=== PATIENT | female | born 2000 | race African-American/Black ===

== ENCOUNTER 2021-01-10 12:32 | Emergency (ER) | payer OTHER ==
[~2021-01-10] VITALS: Ht 149.9 cm; Wt 68.2 kg
[2021-01-10 13:23] LABS: BASO % 0.8 % (0.0-1.0); EOS # 0.1 10^3/uL (0.0-0.5); HEMATOCRIT 40.3 % (36.0-47.0); HEMOGLOBIN 13.3 g/dl (12.0-15.5); LYMPH # 2.1 10^3/uL (1.5-5.0); LYMPH % 41.8 % (24.0-44.0); MEAN CORPUSCULAR HEMOGLOBIN 29.8 pg (27.0-33.0); MEAN CORPUSCULAR VOLUME 90.2 fl (80.0-96.0); MONO # 0.5 10^3/uL (0.0-0.8); MONO % 9.6 % (2.0-8.0); NEUTROPHILS # 2.3 10^3/uL (1.5-8.5); NEUTROPHILS % 45.6 % (36.0-66.0); PLATELET COUNT, AUTOMATED 334 10^3/uL (150-450); RED BLOOD COUNT 4.47 10^6/uL (4.00-5.40)
[2021-01-10 14:04] LABS: HCG, SERUM QUALITATIVE NEGATIVE (NEGATIVE)
[2021-01-10 15:22] LABS: CHLAMYDIA DNA AMPLIFICATION NEGATIVE (NEGATIVE); GC DNA AMPLIFICATION NEGATIVE (NEGATIVE)
--- NOTE | 2021-01-10 15:39 | REP ---
INDICATION: left lower quadrant abdominal pain. COMPARISON: None. TECHNIQUE: Transabdominal and transvaginal scanning were performed. FINDINGS: Uterine dimensions are normal at 8.1 x 3.4 x 4.9 cm. Endometrial echo is 1.4 cm thick and centrally placed. No free fluid is seen in the cul-de-sac. Visualized bladder everett are smooth. Mobile endometrial echoes are seen in this patient with active bleeding. No focal uterine mass is seen. The right ovary has dimensions of 3.6 x 1.9 x 2.1 cm. It's Doppler flow is normal with a resistive index of 0.68. The left ovary dimensions are normal as well at 4.1 x 2.1 x 3.5 cm. It's Doppler flow was normal with resistive index of 0.64. There is a 2.6 x 2.6 x 1.7 cm follicle cyst visible in the left ovary. IMPRESSION: No significant morphologic abnormality. 2.6 cm follicle cyst left ovary.. <Electronically signed by Demetrio Byers > 01/10/21 [id number]
[2021-01-10 15:58] VITALS: BP 116/68
== END 2021-01-10 15:59 | disposition home or self-care (01) ==
LOC: M ED 12:32
DX: N93.8 Other specified abnormal uterine and vaginal bleeding (principal); N89.8 Other specified noninflammatory disorders of vagina; N83.02 Follicular cyst of left ovary

== ENCOUNTER 2021-04-20 09:42 | Emergency (ER) | payer OTHER ==
[~2021-04-20] VITALS: Ht 149.9 cm; Wt 66.4 kg
[2021-04-20 10:32] LABS: BASO % 0.4 % (0.0-1.0); EOS # 0.1 10^3/uL (0.0-0.5); EOS % 1.4 % (0.0-3.0); HEMATOCRIT 37.1 % (36.0-47.0); HEMOGLOBIN 12.5 g/dl (12.0-15.5); LYMPH % 39.3 % (24.0-44.0); MEAN CORPUSCULAR HEMOGLOBIN 30.8 pg (27.0-33.0); MEAN CORPUSCULAR HGB CONC 33.7 g/dl (32.0-36.5); MEAN CORPUSCULAR VOLUME 91.4 fl (80.0-96.0); MONO # 0.4 10^3/uL (0.0-0.8); MONO % 7.8 % (2.0-8.0); NEUTROPHILS # 2.5 10^3/uL (1.5-8.5); NEUTROPHILS % 50.7 % (36.0-66.0); PLATELET COUNT, AUTOMATED 317 10^3/uL (150-450); RED BLOOD COUNT 4.06 10^6/uL (4.00-5.40)
[2021-04-20 10:52] LABS: ALBUMIN 3.9 GM/DL (3.2-5.2); BILIRUBIN,DIRECT 0.2 MG/DL (0.0-0.2); BILIRUBIN,TOTAL 0.6 MG/DL (0.2-1.0); TOTAL PROTEIN 7.4 GM/DL (6.4-8.2)
--- NOTE | 2021-04-20 12:09 | REP ---
INDICATION: cramping COMPARISON: None. TECHNIQUE: Transabdominal and transvaginal 1st trimester obstetrical ultrasound with color Doppler evaluation. FINDINGS: Anteverted uterus measures 7.9 x 4.1 x 5.7 cm. A small cystic structure measuring 2.7 cm mean diameter may represent small empty gestational sac measuring at 4 weeks 5 days gestational age. No pole or yolk sac identified. Maternal ovaries are normal in appearance and vascularity. Right ovary measures 4.2 x 2.6 x 3.3 cm (RI 0.49) and includes 2.5 x 1.9 x 1.3 cm complex cystic lesion possible corpus luteum. Left ovary measures 3.1 x 1.4 x 1.9 cm (RI 0.60). Small amount of free fluid in the pelvis is nonspecific. IMPRESSION: Small possible gestational sac without yolk sac or pole. Differential diagnosis includes blighted ovum as well as early and less likely ectopic . Correlation with serial HCG levels and repeat ultrasound as necessary. <Electronically signed by Ramiro Gleason > 04/20/21 [id number]
[2021-04-20 13:14] VITALS: BP 130/74
[2021-04-20 13:48] LABS: CHLAMYDIA DNA AMPLIFICATION NEGATIVE (NEGATIVE); GC DNA AMPLIFICATION NEGATIVE (NEGATIVE)
== END 2021-04-20 13:16 | disposition home or self-care (01) ==
LOC: M ED 09:42
DX: O20.0 Threatened abortion (principal); Z3A.00 Weeks of gestation of pregnancy not specified

== ENCOUNTER 2021-05-04 14:59 | Emergency (ER) | payer OTHER ==
[~2021-05-04] VITALS: Ht 149.9 cm; Wt 66.4 kg
[2021-05-04 20:23] LABS: BASO % 0.4 % (0.0-1.0); EOS # 0.2 10^3/uL (0.0-0.5); EOS % 1.9 % (0.0-3.0); HEMATOCRIT 37.6 % (36.0-47.0); HEMOGLOBIN 12.7 g/dl (12.0-15.5); LYMPH # 2.6 10^3/uL (1.5-5.0); LYMPH % 27.7 % (24.0-44.0); MEAN CORPUSCULAR HEMOGLOBIN 30.7 pg (27.0-33.0); MEAN CORPUSCULAR HGB CONC 33.8 g/dl (32.0-36.5); MEAN CORPUSCULAR VOLUME 90.8 fl (80.0-96.0); MONO # 0.8 10^3/uL (0.0-0.8); MONO % 8.2 % (2.0-8.0); NEUTROPHILS # 5.7 10^3/uL (1.5-8.5); NEUTROPHILS % 61.6 % (36.0-66.0); PLATELET COUNT, AUTOMATED 335 10^3/uL (150-450); RED BLOOD COUNT 4.14 10^6/uL (4.00-5.40); WHITE BLOOD COUNT 9.3 10^3/uL (4.0-10.0)
[2021-05-04 21:01] LABS: BLOOD UREA NITROGEN 14 MG/DL (7-18); CALCIUM LEVEL 9.2 MG/DL (8.5-10.1); CARBON DIOXIDE LEVEL 23 MEQ/L (21-32); CHLORIDE LEVEL 104 MEQ/L (98-107); CREATININE FOR GFR 0.68 MG/DL (0.55-1.30); GLOMERULAR FILTRATION RATE > 60.0 (>60); GLUCOSE, FASTING 77 MG/DL (70-100); HCG, SERUM QUANTITATIVE 2510 MIU/ML; POTASSIUM SERUM 3.9 MEQ/L (3.5-5.1); SODIUM LEVEL 136 MEQ/L (136-145)
[2021-05-04 21:43] LABS: APPEARANCE, URINE HAZY (CLEAR); BACTERIA, URINE AUTO NEGATIVE (NEGATIVE); BILIRUBIN, URINE AUTO NEGATIVE (NEGATIVE); BLOOD, URINE BLOOD 3+ (NEGATIVE); COLOR, URINE YELLOW (YELLOW); GLUCOSE, URINE (UA) AUTO NEGATIVE (NEGATIVE); KETONE, URINE AUTO 2+ mg/dL (NEGATIVE); LEUKOCYTE ESTERASE, URINE AUTO NEGATIVE (NEGATIVE); MUCUS, URINE SMALL (NEGATIVE); NITRITE, URINE AUTO NEGATIVE (NEGATIVE); PROTEIN, URINE AUTO 1+ mg/dL (NEGATIVE); RBC, URINE AUTO 74 /HPF (0-3); SPECIFIC GRAVITY URINE AUTO 1.027 (1.002-1.035); SQUAMOUS EPITHELIAL CELL UR AU 4 /HPF (0-6); UROBILINOGEN, URINE AUTO 0.2 mg/dL (0.0-2.0); WBC, URINE AUTO 5 /HPF (0-3)
[2021-05-04] MEDS ORDERED: ACETAMINOPHEN 500 MG TAB PO ONE (21:45)
--- NOTE | 2021-05-04 22:56 | REPVR ---
PROCEDURE INFORMATION: Exam: US First Trimester, Transabdominal Exam date and time: 05/04/2021 10:07 PM Age: 20 years old Clinical indication: Lmp or gestational age (in weeks): 03/18/21; Antepartum complications; Bleeding; ; Additional info: 6 wks preg, vag bleeding, pelvic cramping TECHNIQUE: Imaging protocol: Real-time transabdominal obstetrical ultrasound of the maternal pelvis and a first trimester , less than 14 weeks 0 days, with image documentation. COMPARISON: No relevant prior studies available. FINDINGS: Limitations: Lack of transvaginal imaging which was refused by the patient. Gestation: No intrauterine gestation is visualized. MATERNAL: Uterus: Uterus measures 6.7 x 3.9 x 4.9 cm. Endometrium measures 5 mm. Cervix: Unremarkable. Right adnexa: Right ovary is not visualized. Left adnexa: Left ovary measures 2.3 x 1.6 x 1.6 cm. Left ovary appears within normal limits. Intraperitoneal space: No intraperitoneal free fluid. IMPRESSION: No intrauterine gestation is visualized. Electronically signed by: Vaibhav Dean On 05/04/2021 22:56:28 PM
[2021-05-04 23:35] VITALS: BP 111/64
== END 2021-05-04 23:40 | disposition home or self-care (01) ==
LOC: M ED 14:59
DX: O03.9 Complete or unspecified spontaneous abortion without complication (principal); Z3A.01 Less than 8 weeks gestation of pregnancy